=== PATIENT | female | born 1990 | race Two or more races ===

== ENCOUNTER 2017-03-31 18:24 | Emergency (ER) | payer OTHER, BC ==
[2017-03-31 18:32] VITALS: BP 129/80; PULSE 59; RESP 16; TEMP 98.4; O2SAT 99
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
== END 2017-03-31 19:41 | disposition home or self-care (01) ==
LOC: CED 18:24
DX: S06.0X0A Concussion without loss of consciousness, initial encounter (principal); S16.1XXA Strain of muscle, fascia and tendon at neck level, initial encounter; S39.012A Strain of muscle, fascia and tendon of lower back, initial encounter; V49.49XA Driver injured in collision with other motor vehicles in traffic accident, initial encounter; Y92.410 Unspecified street and highway as the place of occurrence of the external cause; Y99.8 Other external cause status; Y93.89 Activity, other specified